=== PATIENT | male | born 1960 | race Caucasian/White ===

== ENCOUNTER 2018-10-28 06:04 | Day surgery (SDC) | payer BC ==
[~2018-10-28] VITALS: Ht 172.7 cm; Wt 107.0 kg
[~2018-10-28 06:04] MED LIST: ASPIRIN E.C. 8181 MG PO; CARDURA4 MG PO; DIABETA 5MG5 MG/TAB PO; FLEXERIL 1010 MG/TAB PO; GLUCOPHAGE1000 MG PO; HCTZ12.5TAB PO; LANTUS100 U/ML SC; NORVASC 10MG10 MG PO; PERCOCET 325 MG1 TA2 PO; PRAVACHOL 40MG40 MG PO; TOPROL XL100 MG PO; ZESTRIL40 MG PO; ZYLOPRIM 300MG300 MG PO
[2018-10-28] MEDS ORDERED: NORVASC 10MG10 MG PO (06:39)
[2018-10-28] MEDS ORDERED: DIOVAN320 MG PO (06:39)
[2018-10-28] MEDS ORDERED: ACTOS 45MG45 MG/TAB PO (06:39)
[2018-10-28 06:40] VITALS: BP 131/78; PULSE 73; TEMP 98.1
[2018-10-28] MEDS ORDERED: B-121000 MCG PO (06:40)
[2018-10-28] MEDS ORDERED: HYGROTON 2525 MG/TAB PO (06:40)
[2018-10-28 07:30] VITALS: BP 95/56; PULSE 67; TEMP 97.6
[2018-10-28 07:45] VITALS: BP 101/59; PULSE 64
[2018-10-28 08:00] VITALS: BP 106/58; PULSE 68
[2018-10-28 08:15] VITALS: BP 105/50; PULSE 62
== END 2018-10-28 08:35 | disposition home or self-care (01) ==
LOC: SDCO 06:04
DX: Z12.11 Encounter for screening for malignant neoplasm of colon (principal); I10 Essential (primary) hypertension; D50.9 Iron deficiency anemia, unspecified; E11.9 Type 2 diabetes mellitus without complications; Z79.4 Long term (current) use of insulin; Z79.899 Other long term (current) drug therapy; R09.81 Nasal congestion; F32.9 Major depressive disorder, single episode, unspecified; R20.0 Anesthesia of skin; R53.1 Weakness; R05 Cough
CPT/HCPCS: J2250; J3010; J7042

== ENCOUNTER → 2019-02-17 | Outpatient (CLI) | payer BC ==
[~2019-02-17] MED LIST changes: +ACTOS 45MG45 MG/TAB PO; +B-121000 MCG PO; +DIOVAN320 MG PO; +HYGROTON 2525 MG/TAB PO
[2019-02-19 18:18] LABS: URINE TOTAL VOLUME 1850 mL
[2019-02-19 18:30] LABS: URINE CREATININE CLEARANCE 143.9 mL/min (97-137)
== END ==
LOC: COL.RAD 07:12
PROVIDERS: Family Medicine
DX: R91.8 Other nonspecific abnormal finding of lung field (principal); R10.12 Left upper quadrant pain
CPT/HCPCS: Q9967

== ENCOUNTER → 2019-08-31 | Outpatient (CLI) | payer BC | LOC: COL.RAD 13:50 | DX: Z01.812 Encounter for preprocedural laboratory examination (principal); R91.8 Other nonspecific abnormal finding of lung field | CPT/HCPCS: Q9967 ==

== ENCOUNTER 2020-06-03 05:34 | Inpatient (IN) | payer BC ==
[2020-06-03] VITALS (25 sets, daily range): BP systolic 129–152; BP diastolic 68–88; PULSE 72–89; TEMP 98.8–99.2; O2SAT 95–100
[~2020-06-03] VITALS: Ht 172.7 cm; Wt 108.6 kg
[2020-06-03] MEDS ORDERED: LANTUS100 U/ML SQ (05:49)
[2020-06-03 06:29] LABS: COLLECTION METHOD CLEAN CATCH
[2020-06-03 07:25] LABS: PH 7 (5-8); SQUAMOUS EPITHELIAL None Seen /hpf; URINE APPEARANCE Clear; URINE BACTERIA None Seen /hpf; URINE BILIRUBIN Negative (NEGATIVE); URINE BLOOD Negative (NEGATIVE); URINE COLOR Straw; URINE GLUCOSE Negative (NEGATIVE); URINE KETONE Negative (NEGATIVE); URINE LEUKOCYTE ESTERASE Negative (NEGATIVE); URINE NITRATE Negative (NEGATIVE); URINE PROTEIN(semi-quant) Negative (NEGATIVE); URINE RBC 0-2 /hpf; URINE UROBILINOGEN Negative (NEGATIVE)
[2020-06-03 07:45] LABS: BASO # 0.1 (0.0-0.2); BASO % 0.9 % (0.0-2.0); EOS # 0.1 (0.0-0.7); GRAN # 6.1 (1.4-6.5); GRAN % 66.4 % (42.2-75.2); HEMATOCRIT 40.5 % (42.0-52.0); HEMOGLOBIN 14.1 g/dl (13.5-18.0); LYMPH # 2.3 (1.2-3.4); LYMPH % 25.2 % (20.0-51.0); MEAN CELL VOLUME 90 fl (80.0-100.0); MEAN CORPUSCULAR HEMOGLOBIN 31 pg (27.0-31.0); MEAN CORPUSCULAR HGB CONC 35 g/dl (33.0-37.0); MEAN PLATELET VOLUME 12.4 fl (7.4-10.4); MONO # 0.6 (0.1-0.6); MONO % 6.1 % (1.7-9.3); PLATELET COUNT 142 K/mm3 (130-400); RED BLOOD COUNT 4.52 M/mm3 (4.20-5.60); REDCELL DISTRIBUTION WIDTH-CV 12.3 % (11.5-14.5)
[2020-06-03 08:09] LABS: ALBUMIN 4.1 gm/dL (3.5-5.0); BILIRUBIN,TOTAL 0.7 mg/dL (0.0-1.0); CALCIUM 9.1 mg/dL (8.4-10.2); CREATININE, serum 0.84 (0.66-1.25); TOTAL PROTEIN 7.2 gm/dL (6.4-8.2)
[2020-06-03 08:41] LABS: POTASSIUM 2.6 mmol/L (3.4-5.0)
[2020-06-03 09:19] LABS: TROPONIN-I 0.042 ng/mL (0.000-0.035)
--- NOTE | 2020-06-03 15:01 | NUR ---
[employer] Crew[employer] met with patient to discuss discharge planning. Patient lives in [place] with his , Angelica (ph#[phone]) and their two adult daughters, Marissa and Amira. Patient sees Dr. Pelaez for primary care and obtains most of his medications from [facility] with no difficulties. Patient also utilizes [facility] as needed. Patient has a glucose meter at home and no other DME. Patient is independent with ADLS and plans to return home at discharge. Patient does not have Advance Directives and was not interested in setting them up at this time. SW will continue to follow as needed.
--- NOTE | 2020-06-03 15:08 | NUR ---
Called about increased troponin. He did not answer, message left saying I would call and let cardiology know.
--- NOTE | 2020-06-03 15:09 | NUR ---
Called and notified about patients increased troponin. She said that was okay and to order a mag/bmp lab recheck, order scheduled potassium and magnesium oxide.
[2020-06-03 16:44] LABS: CALCIUM 9.1 mg/dL (8.4-10.2); CREATININE, serum 0.82 (0.66-1.25); MAGNESIUM 2.3 mg/dL (1.6-2.3)
--- NOTE | 2020-06-03 20:00 | NUR ---
Patient resting in bed at this time watching TV. Patient is A+Ox4, no complaints of pain or SOA. Patient walks steadily to the restroom and back to bed, he is independent. No change in heart rhythm when getting up. Assessment complete. No significant findings except for some slight BLE edema. Patient continues on potassium replacement. Patient has no further needs at this time. Will continue to monitor. Call light within reach.
[2020-06-04] VITALS (530 sets, daily range): BP systolic 122–160; BP diastolic 64–87; PULSE 63–92; TEMP 97.8–98.9; O2SAT 83–100
--- NOTE | 2020-06-04 | NUR ---
Patient continues to rest, sleeps between disturbances. No current needs. Assessment reveals no changes. Will continue to monitor. Call light within reach.
--- NOTE | 2020-06-04 04:00 | NUR ---
Patient asleep upon enterance into the room. Awakens to name. Patient has been desaturating, placed on 2L NC for some possible RICK. Assessment complete with no changes from previous exam. Vitals obtained and remain stable. No further needs at this time. Will continue to monitor. Call light within reach.
[2020-06-04 06:24] LABS: CALCIUM 8.7 mg/dL (8.4-10.2); CREATININE, serum 0.79 (0.66-1.25); MAGNESIUM 1.7 mg/dL (1.6-2.3); POTASSIUM 3.3 mmol/L (3.4-5.0)
[2020-06-04 06:26] LABS: BASO # 0.1 (0.0-0.2); BASO % 0.6 % (0.0-2.0); EOS # 0.2 (0.0-0.7); EOS % 2.8 % (0-4.0); GRAN # 4.7 (1.4-6.5); GRAN % 59.1 % (42.2-75.2); HEMATOCRIT 40.1 % (42.0-52.0); HEMOGLOBIN 13.5 g/dl (13.5-18.0); LYMPH # 2.5 (1.2-3.4); LYMPH % 30.9 % (20.0-51.0); MEAN CELL VOLUME 93 fl (80.0-100.0); MEAN CORPUSCULAR HEMOGLOBIN 31 pg (27.0-31.0); MEAN CORPUSCULAR HGB CONC 34 g/dl (33.0-37.0); MEAN PLATELET VOLUME 12.7 fl (7.4-10.4); MONO # 0.5 (0.1-0.6); MONO % 6.2 % (1.7-9.3); PLATELET COUNT 146 K/mm3 (130-400); RED BLOOD COUNT 4.32 M/mm3 (4.20-5.60); REDCELL DISTRIBUTION WIDTH-CV 12.6 % (11.5-14.5)
[2020-06-04 17:35] LABS: CALCIUM 9.2 mg/dL (8.4-10.2); CREATININE, serum 0.81 (0.66-1.25); MAGNESIUM 2.2 mg/dL (1.6-2.3); POTASSIUM 3.7 mmol/L (3.4-5.0)
--- NOTE | 2020-06-04 18:47 | NUR ---
Patient arrived to room 314 at this time from ICU, alert/oriented, ambulatory in his room, explained we are about to change shifts and will be in shortly with the oncoming nurse
--- NOTE | 2020-06-04 20:30 | NUR ---
Initial shift assessment done- VSS, denies pain, states just very tired, Up in room on own, no requests tonight. Tele on
[2020-06-05 04:28] VITALS: BP 153/70; PULSE 77; TEMP 98
--- NOTE | 2020-06-05 05:35 | NUR ---
Quiet night- VSS, Tele on. No requests. Slept well
[2020-06-05 07:22] VITALS: BP 138/82; PULSE 85; TEMP 97.9
[2020-06-05 07:26] LABS: CALCIUM 8.7 mg/dL (8.4-10.2); CREATININE, serum 0.9 (0.66-1.25); MAGNESIUM 1.7 mg/dL (1.6-2.3); POTASSIUM 3.5 mmol/L (3.4-5.0)
[2020-06-05 07:44] LABS: TROPONIN-I 0.04 ng/mL (0.000-0.035)
--- NOTE | 2020-06-05 08:41 | NUR ---
Assessment completed, alert/oriented, vital signs stable, denies any pain/discomfort, denies any chest discomfort or palpitations, heart RRR/ distal pulses are palapble, SR on tele, K 3.5 this morning and replacing per protocol, Mg 1.7 , patient is up walking around in his room and hoping to be discharged today, his breakfast just arrived and he denies other needs at this time
[2020-06-05 11:24] VITALS: BP 132/81; PULSE 80; TEMP 98.1
--- NOTE | 2020-06-05 12:16 | NUR ---
Initial visit; Patient and Civil Draftsman had a good visit about his health and his work on his genealogical background. Civil Draftsman offered God's blessings and good health.
[2020-06-05] MEDS ORDERED: K-DUR20 MEQ PO (13:54)
--- NOTE | 2020-06-05 14:07 | NUR ---
[employer]ensed [employer] met with the patient to follow up and revisit the discharge plan. The patient plans to go home. There are no additional needs at this time.
--- NOTE | 2020-06-05 16:03 | NUR ---
Discharge instructions reviewed with the patient, instructed to follow up with PCP and Cardiology as we have scheduled for him, instructed to take KCL as ordered/ [facility], explained Cardiology office will mail him a heart monitor with instructions, PICC removed by AIVS, tele removed, leaving with her daughter, patient is ambulatory and I escorted him out the door
== END 2020-06-05 16:06 | disposition home or self-care (01) | DRG 640 ==
LOC: COL.ER 05:34 → ICU 07:30 → IMCU 07:30 → ICU 09:32 → MEDICAL 06-04 18:35
PROVIDERS: Emergency Medicine; Internal Medicine Adult Congenital Heart Disease; Physician Assistant; ADMIT Internal Medicine
PROC: 02HV33Z Insertion of Infusion Device into Superior Vena Cava, Percutaneous Approach (ICD-10-PCS; principal; 2020-06-03)
DX: E83.42 Hypomagnesemia (principal); I21.A1 Myocardial infarction type 2; I47.2 Ventricular tachycardia; E87.6 Hypokalemia; M10.9 Gout, unspecified; E11.9 Type 2 diabetes mellitus without complications; N40.0 Benign prostatic hyperplasia without lower urinary tract symptoms; I10 Essential (primary) hypertension; Z79.4 Long term (current) use of insulin
CPT/HCPCS: OP; 99223-AI; 99232-AI; 99239; A9500; C1751; J1650; J1815; J2785; J3475; J3480; J7030

== ENCOUNTER 2020-08-23 13:16 | Outpatient (CLI) | payer BC ==
[~2020-08-23] VITALS: Ht 172.7 cm; Wt 108.4 kg
[2020-08-23] VITALS (7 sets, daily range): BP systolic 119–137; BP diastolic 52–68; PULSE 62–82; TEMP 99
[~2020-08-23 13:16] MED LIST changes: +K-DUR20 MEQ PO; +LANTUS100 U/ML SQ
== END 2020-08-23 17:32 | disposition home or self-care (01) ==
LOC: EUO 13:16
DX: Z01.89 Encounter for other specified special examinations (principal)
CPT/HCPCS: J3475

== ENCOUNTER 2022-07-29 02:30 | Emergency (ER) | payer BC ==
[~2022-07-29] VITALS: Ht 172.7 cm; Wt 109.1 kg
[~2022-07-29 02:30] MED LIST changes: +CEPHALEXIN500 M1 PO; +COZAAR 50MG50 MG/TAB PO; +MAG-OX 400400 MG/TAB PO
[2022-07-29 02:36] VITALS: BP 138/75
[2022-07-29 03:05] VITALS: PULSE 77; TEMP 98.1
== END 2022-07-29 03:05 | disposition home or self-care (01) ==
LOC: COL.ER 02:30
DX: U07.1 COVID-19 (principal)

== ENCOUNTER 2022-08-02 22:59 | Emergency (ER) | payer BC ==
[~2022-08-02] VITALS: Ht 172.7 cm; Wt 109.1 kg
[2022-08-02 23:13] VITALS: TEMP 98.1
[2022-08-03] MEDS ORDERED: SENOKOT S 50 MG1 TAB PO (00:02)
[2022-08-03 00:34] VITALS: BP 122/77; PULSE 88
== END 2022-08-03 00:46 | disposition home or self-care (01) ==
LOC: COL.ER 22:59
DX: K64.8 Other hemorrhoids (principal)